=== PATIENT | male | born 1955 ===

== ENCOUNTER 2017-09-19 07:10 | Emergency (ER) | payer BC ==
--- NOTE | 2017-09-19 07:29 | UC ---
FLU HPI - HPI Summary HPI Summary: He has had headache and malaise since Sunday. There is some congestion as well. THere is urinary restriction which is not new but there is some new dysuria. No prior UTI. Urination makes it worse. - History of Current Complaint Stated Complaint: KASPER,ATA,ACHY,CHILLS Time Seen by Provider: 09/19/17 07:20 Hx Obtained From: Patient Onset/Duration: Lasting Days Severity Currently: Moderate Severity Initially: Moderate Associated Signs & Symptoms: Positive: F/C, Myalgia, Nasal Congestion, Headache. Negative: Vomiting, Diarrhea - Allergy/Home Medications Allergies/Adverse Reactions: Allergies Allergy/AdvReac Type Severity Reaction Status Date / Time No Known Allergies Allergy Verified 09/19/17 07:38 Home Medications: Home Medications Aspirin [Ford Aspirin] 81 mg PO DAILY 09/19/17 [History Confirmed 09/19/17 ] Loperamide CAP* [Imodium CAP*] 0 mg PO SEE INSTRUCTIONS 09/19/17 [History Confirmed 09/19/17] Losartan TAB* [Cozaar TAB*] 25 mg PO DAILY 09/19/17 [History Confirmed 09/19/17] Simvastatin 20 mg PO QPM 09/19/17 [History Confirmed 09/19/17] PMH/Surg Hx/FS Hx/Imm Hx Previously Healthy: No - urinary restriction. denies lung or heart disease. - Family History Known Family History: Positive: Other - no related family history. - Social History Substance Use Type: None Smoking Status (MU): Never Smoked Tobacco Review of Systems Constitutional: Chills Genitourinary: Dysuria All Other Systems Reviewed And Are Negative: Yes Physical Exam Triage Information Reviewed: Yes Appearance: Well-Appearing, No Pain Distress, Well-Nourished Vital Signs Reviewed: Yes Eyes: Positive: Conjunctiva Clear ENT: Positive: Pharynx normal, Nasal congestion, TMs normal, Uvula midline. Negative: TM bulging, TM dull, TM red, Tonsillar swelling, Tonsillar exudate, Trismus, Muffled voice, Hoarse voice, Sinus tenderness Neck: Positive: Supple, Nontender, No Lymphadenopathy. Negative: Nuchal Rigidity Respiratory: Positive: Lungs clear, Normal breath sounds, No respiratory distress, No accessory muscle use. Negative: Respiratory distress, Decreased breath sounds, Accessory muscle use, Crackles, Rhonchi, Stridor, Wheezing Cardiovascular: Positive: No Murmur, Pulses Normal, Brisk Capillary Refill Abdomen Description: Positive: No Organomegaly, Soft. Negative: CVA Tenderness (R), CVA Tenderness (L), Distended, Guarding Musculoskeletal: Positive: Strength Intact, ROM Intact, No Edema Neurological: Positive: Alert, Muscle Tone Normal. Negative: Fatigued Psychological: Positive: Age Appropriate Behavior Skin: Negative: rashes Flu Course/Dx - Course Course Of Treatment: Flu neg. No signs of sepsis or sirs. He has new dysuria. This may be uti. We will treat and have him f/u with pcp. He will go to ED for pain, fever, rigors. - Differential Dx/Diagnosis Provider Diagnoses: uti Discharge - Discharge Plan Condition: Good Disposition: HOME Prescriptions: Cephalexin CAP* [Keflex CAP*] 500 mg PO TID #30 cap Patient Education Materials: Urinary Tract Infection in Men (ED) Referrals: Shahid Dumont MD [Primary Care Provider] - Additional Instructions: Go to ED for fever, chills or any pain.
[2017-09-19 07:47] VITALS: BP 124/72
== END 2017-09-19 08:10 | disposition home or self-care (01) ==
LOC: UCCORT 07:10
DX: N39.0 Urinary tract infection, site not specified (principal); Z79.82 Long term (current) use of aspirin
CPT/HCPCS: 81003; 87077; 87086; 87186; 87502; 99202; G0463